=== PATIENT | male | born 1940 | race Caucasian/White ===

== ENCOUNTER 2019-07-03 21:26 | Emergency (ER) | payer OTHER ==
[2019-07-03] MEDS ORDERED: NS 0.9% 1000 ML** 1,000 ML IV ONE ×2 (22:17→23:50)
--- NOTE | 2019-07-03 22:20 | ED ---
Abdominal Pain/Male - HPI Summary HPI Summary: This patient is a 78 year old M presenting to ED with a chief complaint of intermittent diarrhea since a few weeks ago. Patient says he feels like he has to pass gas but then passes stool instead. Over the past few weeks, patient has had diarrhea and then doesnt have a bowel movement for a few days after. Today , patient had the diarrhea half an hour after dinner. He reports the diarrhea is loose and dark but not watery. Patient was taking a stool softener in preparation for a colonoscopy, but he stopped it a month ago because of the diarrhea. He has not taken any new medications. Patient also reports abdominal pain and bloating and feels like his stomach is hard. The patient rates the pain 2/10 in severity. Symptoms aggravated by PO intake. Symptoms alleviated by nothing. Patient denies nausea, vomiting, fever, urinary symptoms/difficulty. Patient is allergic to contrast. - History of Current Complaint Chief Complaint: EDNauseaVomitDiarrh Stated Complaint: DIARRHEA/ABD PAIN PER PT Time Seen by Provider: 07/03/19 21:56 Hx Obtained From: Patient Onset/Duration: Gradual Onset, Lasting Weeks, Still Present Timing: Intermittent, Lasting Days - Diarrhea followed by a few days of no bowel movements Severity Initially: Mild Severity Currently: Mild Pain Intensity: 2 Pain Scale Used: 0-10 Numeric Location: Diffuse Character: Other: - Bloating Aggravating Factor(s): Food Alleviating Factor(s): Nothing Associated Signs And Symptoms: Positive: Diarrhea. Negative: Fever, Urinary Symptoms, Nausea, Vomiting - Allergies/Home Medications Allergies/Adverse Reactions: Allergies Allergy/AdvReac Type Severity Reaction Status Date / Time doxycycline Allergy Hives/Diff. Verified 07/03/19 23:41 Breathing/I tching Penicillins Allergy Hives/Diff. Verified 07/03/19 23:41 Breathing/I tching IV COntrast Allergy See Comment Uncoded 07/03/19 21:30 PMH/Surg Hx/FS Hx/Imm Hx Previously Healthy: No Endocrine/Hematology History: Reports: Hx Anticoagulant Therapy, Hx Diabetes - DM2 Cardiovascular History: Reports: Hx Hypertension - ON MEDS Respiratory History: Reports: Hx Asthma, Hx Chronic Obstructive Pulmonary Disease (COPD) History: Reports: Hx Benign Prostatic Hyperplasia, Hx Kidney Stones, Hx Renal Disease Comment Only: Other Problems/Disorders - l kidney lesions removed x2 Sensory History: Reports: Hx Glaucoma, Hx Hearing Aid, Hx Hearing Problem Comment Only: Other Sensory Impairments - not with patient Opthamlomology History: Reports: Hx Glaucoma Comment Only: Other Sensory Impairments - not with patient - Cancer History Cancer Type, Location and Year: kidney - Surgical History Surgery Procedure, Year, and Place: 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, umbilical hernia repair over 20 years prior Infectious Disease History: No Infectious Disease History: Denies: Traveled Outside the [place] in Last 30 Days - Family History Known Family History: Negative: Cardiac Disease, Hypertension, Diabetes - Social History Alcohol Use: Occasionally Hx Substance Use: No Substance Use Type: Reports: None Hx Tobacco Use: Yes Smoking Status (MU): Former Smoker Review of Systems - ROS Summary Review of Systems Summary: Home Medications Medication Instructions Recorded Confirmed Type Albuterol 2.5MG/3ML (0.083%)* 90 mcg INH QID PRN 09/07/12 09/07/12 History [Ventolin 2.5 MG/3 ML NEB.EVAN*] Aspirin EC TAB* [Ecotrin EC Low 81 mg PO DAILY 09/07/12 09/07/12 History Dose 81 MG*] Budesonide/Formote 160/4.5(NF) 4.5 - 80 mcg PO BID 09/07/12 09/07/12 History Cholecalciferol TAB* [Vitamin D 1,000 units PO DAILY 09/07/12 09/07/12 History TAB*] Ciprofloxacin TAB* [Cipro Tab*] 500 mg PO BID 09/07/12 09/07/12 History Diltiazem HCl Coated Beads 360 mg PO DAILY 09/07/12 09/07/12 History [Cardizem LA] Docusate CAP* [Colace Cap*] 100 mg PO DAILY 09/07/12 09/07/12 History Ferrous Gluconate TAB* [Fergon 325 unit PO DAILY 09/07/12 09/07/12 History TAB*] Finasteride TAB* [Proscar TAB*] 5 mg PO DAILY 09/07/12 09/07/12 History Lidocaine 5% OINT* 1 drop TOPICAL BID 09/07/12 09/07/12 History Losartan TAB* [Cozaar TAB*] 100 mg PO DAILY 09/07/12 09/07/12 History Meloxicam 7.5 mg PO DAILY 09/07/12 09/07/12 History Montelukast Sodium TAB* [Singulair 10 mg PO DAILY 09/07/12 09/07/12 History 10 MG TAB*] Sennosides [Senna] 2 tab PO DAILY 09/07/12 09/07/12 History Tamsulosin HCl 0.4 mg PO DAILY 09/07/12 09/07/12 History metFORMIN* [Glucophage 500 MG TAB 500 mg PO BID 09/07/12 09/07/12 History *] oxyCODONE/Acetamin 5/325 MG* 2 tab PO Q4HR PRN 09/07/12 09/07/12 History [Percocet 5/325 TAB*] Negative: Fever Positive: Abdominal Pain, Diarrhea. Negative: Vomiting, Nausea Genitourinary: Negative - Urinary symptoms/difficulty All Other Systems Reviewed And Are Negative: Yes Physical Exam - Summary Physical Exam Summary: General: Obese male. No acute distress. HEENT: Normocephalic, Atraumatic. Eyes: Conjuctiva normal, PERRL. Ears: TMs within normal limits. Nares: (-) discharge, (-) erythema. Oropharynx: Clear, mucous membranes moist, (-) exudates. Neck: Soft, FROM, (-) lymphadenopathy, (-) thyromegaly, (-) JVD. Cardiovascular: Normal sinus rhythm, (-) murmur. Lungs: Clear to auscultation bilaterally (-) wheezes, (-) rales, (-) rhonchi. Abdomen: Mild diffuse abdominal tenderness Back: (-) CVA tenderness Extremities: No edema. Skin: Warm, dry, (-) rash. Neuro: Alert and oriented x3, no focal deficits. Psychiatric: Mood normal, affect normal. Triage Information Reviewed: Yes Vital Signs On Initial Exam: Initial Vitals Temp Pulse Resp BP Pulse Ox 97.8 F 76 18 145/77 97 07/03/19 21:29 07/03/19 21:29 07/03/19 21:29 07/03/19 21:29 07/03/19 21:29 Vital Signs Reviewed: Yes Procedures - Sedation Patient Received Moderate/Deep Sedation with Procedure: No Diagnostics - Vital Signs Vital Signs Temp Pulse Resp BP Pulse Ox 07/03/19 22:00 66 12 94 07/03/19 21:39 68 97 07/03/19 21:29 97.8 F 76 18 145/77 97 - Laboratory Result Diagrams: 07/03/19 22:32 07/03/19 22:32 Lab Statement: Any lab studies that have been ordered have been reviewed, and results considered in the medical decision making process. - CT A/P CT Interpretation Completed By: Radiologist Summary of CT Findings: 1. Stable cholelithiasis without pericholecystic inflammatory change. 2. There is colonic diverticulosis without evidence for acute diverticulitis. 3. There is asymmetric wall thickening and scarring at the left aspect of the dome of the urinary bladder which may be related to prior postoperative change with scarring in this location but cannot exclude focal cystitis. Dr. Marie has reviewed this radiology report. Re-Evaluation - Re-Evaluation First Eval Re-Evaluation Time: 01:13 Comment: I have discussed results with the patient and diarrhea is resolved. Discussed symptoms that warrant immediate return to ED. Abdominal Pain Male Course/Dx - Course Course Of Treatment: 78-year-old male with abdominal discomfort and diarrhea. He admits he has been having this problem off and on for months. Was scheduled to have a colonoscopy. He states because of the uncontrolled loose bowel movements he stopped his stool softeners. Patient was given IV fluids in the emergency room. No further episodes of diarrhea. Workup essentially negative although nondiagnostic. Advised to diarrhea. Patient discharged to home. Follow up with PCP. Follow-up sooner for any worsening symptoms. - Diagnoses Provider Diagnoses: Diarrhea Discharge ED - Sign-Out/Discharge Documenting (check all that apply): Patient Departure - Discharge - Discharge Plan Condition: Stable Disposition: HOME Patient Education Materials: Chronic Diarrhea (ED) Referrals: Prakash Hernandez MD [Primary Care Provider] - 3 Days Additional Instructions: Please follow up with your primary care physician within three days. Please return to ED for any new or worsening symptoms. - Billing Disposition and Condition Condition: STABLE Disposition: Home - Attestation Statements Document Initiated by Scribe: Yes Documenting Scribe: Joel Zaidi Provider For Whom Scribe is Documenting (Include Credential): Monique Marie MD Scribe Attestation: Joel Del Valle, scribed for Monique Marie MD on 07/04/19 at 0353. Scribe Documentation Reviewed: Yes Provider Attestation: The documentation as recorded by the scribe, Joel Zaidi accurately reflects the service I personally performed and the decisions made by me, Monique Marie MD Status of Scribe Document: Viewed
[2019-07-03 22:42] LABS: Hematocrit 38 % (42-52); Hemoglobin 12.9 g/dL (14.0-18.0); Mean Corpuscular HGB Conc 34 g/dL (31-36); Mean Corpuscular Hemoglobin 31 pg (27-31); Mean Corpuscular Volume 89 fL (80-94); Mean Platelet Volume 8.8 fL (7.4-10.4); Platelet Count 240 10^3/uL (150-450); Red Blood Count 4.23 10^6 /uL (4.18-5.48); Red Cell Distribution Width 13 % (10-15); White Blood Count 7.1 10^3/uL (3.5-10.8)
[2019-07-03 22:47] LABS: INR 1.01 (0.82-1.09)
[2019-07-03 22:59] LABS: ALT 46 U/L (7-52); AST 23 U/L (13-39); Albumin 4.4 g/dL (3.2-5.2); Albumin/Globulin Ratio 1.6 (1-3); Alkaline Phosphatase 51 U/L (34-104); Amylase 79 U/L (29-103); Anion Gap 9 mmol/L (2-11); BUN/Creatinine Ratio 22.6 (8-20); Blood Urea Nitrogen 31 mg/dL (6-24); C Reactive Protein < 1.00 mg/L (<8.01); CO2 Carbon Dioxide 22 mmol/L (22-32); Chloride 101 mmol/L (101-111); EGFR African American 61.1 (>60); EGFR Non-African American 50.5 (>60); Globulin 2.7 g/dL (2-4); Glucose 183 mg/dL (70-100); Potassium 4.4 mmol/L (3.5-5.0); Sodium 132 mmol/L (135-145); Total Protein 7.1 g/dL (6.4-8.9)
[2019-07-03 23:05] LABS: ABS Basophils 0.1 10^3/ul (0-0.2); ABS Eosinophils 0.3 10^3/ul (0-0.6); ABS Lymphocytes 1.7 10^3/ul (1.0-4.8); ABS Monocytes 0.6 10^3/ul (0-0.8); ABS Neutrophils 4.4 10^3/ul (1.5-7.7); Eosinophil % 4.5 %; Nucleated Red Blood Cells % 0.1
[2019-07-03 23:57] LABS: Urine Appearance Cloudy; Urine Bilirubin Negative (Negative); Urine Blood Negative (Negative); Urine Color Yellow; Urine Glucose Negative (Negative); Urine Ketones Negative (Negative); Urine Nitrite Negative (Negative); Urine Protein Negative (Negative); Urine Specific Gravity 1.013 (1.010-1.030); Urine Urobilinogen Negative (Negative)
[2019-07-04 01:43] VITALS: BP 144/65
== END 2019-07-04 01:35 | disposition home or self-care (01) ==
LOC: ED 21:26
DX: R19.7 Diarrhea, unspecified (principal); K80.20 Calculus of gallbladder without cholecystitis without obstruction; K57.30 Diverticulosis of large intestine without perforation or abscess without bleeding; E11.9 Type 2 diabetes mellitus without complications; I10 Essential (primary) hypertension; J44.9 Chronic obstructive pulmonary disease, unspecified; N40.0 Benign prostatic hyperplasia without lower urinary tract symptoms; Z87.891 Personal history of nicotine dependence; Z88.0 Allergy status to penicillin; Z87.442 Personal history of urinary calculi; Z88.1 Allergy status to other antibiotic agents; Z91.041 Radiographic dye allergy status; Z85.528 Personal history of other malignant neoplasm of kidney; Z79.82 Long term (current) use of aspirin; Z79.84 Long term (current) use of oral hypoglycemic drugs; Z79.899 Other long term (current) drug therapy
CPT/HCPCS: 36415; 74176; 80053; 81003; 82150; 83605; 83690; 85025; 85610; 86140; 87040; 96360; 99283